=== PATIENT | male | born 1955 | race Caucasian/White ===

== ENCOUNTER 2016-04-09 10:30 | Outpatient (CLI) | payer OTHER ==
[2016-04-09 12:20] LABS: eGFR (African) > 60; eGFR (Non-African) > 60
== END 2016-04-09 10:32 ==
LOC: LAB 10:30
PROVIDERS: ATTEND Family Medicine
DX: E11.9 Type 2 diabetes mellitus without complications (principal)
CPT/HCPCS: 36415; 80053; 80061; 82043; 83036

== ENCOUNTER 2016-10-02 10:15 | Outpatient (CLI) | payer OTHER | END 2016-10-02 10:16 | LOC: LAB 10:15 | PROVIDERS: ATTEND Family Medicine | DX: E11.9 Type 2 diabetes mellitus without complications (principal) | CPT/HCPCS: 36415; 83036 ==

== ENCOUNTER 2017-03-24 10:24 | Outpatient (CLI) | payer OTHER | END 2017-03-24 10:25 | LOC: LAB 10:24 | PROVIDERS: ATTEND Family Medicine | DX: E11.9 Type 2 diabetes mellitus without complications (principal) | CPT/HCPCS: 36415; 83036 ==

== ENCOUNTER 2017-06-15 07:15 | Outpatient (CLI) | payer OTHER ==
[2017-06-15 07:28] LABS: BASOPHILS % 0.4 (0.0-1.5); MEAN CORPUSCULAR HEMOGLOBIN 31.2 pg (28.0-34.0); MEAN CORPUSCULAR VOLUME 88.6 fl (80.0-100.0); MONOCYTES % 11.8 % (0.0-11.0); NEUTROPHILS # 2.8 # k/uL (1.4-7.7)
== END 2017-06-15 07:16 ==
LOC: LAB 07:15
PROVIDERS: ATTEND Urology
DX: C61 Malignant neoplasm of prostate (principal)
CPT/HCPCS: 36415; 85025

== ENCOUNTER 2017-10-08 09:52 | Outpatient (CLI) | payer OTHER ==
[2017-10-08 10:56] LABS: eGFR (African) > 60; eGFR (Non-African) 60
== END 2017-10-08 14:09 ==
LOC: LAB 09:52
PROVIDERS: ATTEND Family Medicine
DX: E11.9 Type 2 diabetes mellitus without complications (principal)
CPT/HCPCS: 36415; 80053; 80061; 83036

== ENCOUNTER 2018-04-20 09:49 | Outpatient (CLI) | payer OTHER | END 2018-04-20 10:05 | LOC: LAB 09:49 | PROVIDERS: ATTEND Family Medicine | DX: E11.9 Type 2 diabetes mellitus without complications (principal) | CPT/HCPCS: 36415; 83036 ==